=== PATIENT | male | born 2000 | race Caucasian/White ===

== ENCOUNTER 2023-12-11 02:36 | Emergency (ER) | payer SELFPAY ==
[2023-12-11] MEDS ORDERED: Ondansetron PF 4 MG/2 ML Vial ONE (02:59)
== END 2023-12-11 04:42 | disposition home or self-care (01) ==
LOC: CSHERS 02:36
DX: F10.129 Alcohol abuse with intoxication, unspecified (principal)
CPT/HCPCS: 96361; 96374; J2405